=== PATIENT | female | born 1970 | race Hispanic/Latino ===

== ENCOUNTER 2017-07-29 10:43 | Outpatient (CLI) | payer MEDICARE ==
--- NOTE | 2017-07-30 08:36 | Cat Scan Report ---
CT abdomen and pelvis without contrast: Abdominal pain. Transverse images were obtained from lower chest to the ischium with coronal and sagittal 2-D reformatted images. A small calcified nodule is present at the right lung base. There is a hypodense mass involving the right adrenal gland measuring approximately 2.6 cm. It has average Hounsfield units of 10.8. The gallbladder is been removed. A tiny calcification is suspected in the central left renal collecting system. The abdominal and retroperitoneal structures are otherwise unremarkable. The partially opacified bowel and mesentery appear normal. There is a small umbilical hernia and there is also an anterior abdominal wall mesh. The bones appear generally demineralized. There is lower lumbar spondylosis with significant narrowing of the L4-5 and L5-S1 discs spaces. Degenerative apophyseal joint changes are also noted at these 2 levels. Impressions: 1. Right adrenal adenoma. 2. Tiny left renal calculus. 3. Abdominal mesh. 4. Lower lumbar degenerative bone/ disc changes.
== END 2017-07-29 10:44 | disposition home or self-care (01) ==
LOC: CT 10:43
PROVIDERS: ATTEND Internal Medicine
DX: D35.01 Benign neoplasm of right adrenal gland (principal); N20.0 Calculus of kidney; K42.9 Umbilical hernia without obstruction or gangrene; M47.896 Other spondylosis, lumbar region; R91.1 Solitary pulmonary nodule; Z90.49 Acquired absence of other specified parts of digestive tract
CPT/HCPCS: 74150

== ENCOUNTER 2017-10-26 22:29 | Emergency (ER) | payer MEDICARE | END 2017-10-27 01:00 | disposition left against medical advice (07) | LOC: ED 22:29 | DX: R11.2 Nausea with vomiting, unspecified (principal); Z53.21 Procedure and treatment not carried out due to patient leaving prior to being seen by health care provider ==